=== PATIENT | female | born 1955 | race Hispanic/Latino ===

== ENCOUNTER 2017-08-19 14:59 | Inpatient (IN) | payer BC ==
[~2017-08-19 14:59] MED LIST: Dexamethasone 20 MG/5 ML VIAL ONE; Glycopyrrolate 0.2 MG/ML 5 ML SYRINGE ONE; Ketorolac Tromethamine 30 MG/ML VIAL ONE; Lidocaine 1% PF 5 ML VIAL ONE; Ondansetron HCl/PF 4 MG/2 ML Vial ONE; Propofol 200 MG/20 ML VIAL ONE
[2017-08-19] MEDS ORDERED: CEFAZOLIN/Water 2 GM/20 ML SYRINGE ONE (15:23)
[2017-08-19] MEDS ORDERED: Adacel (T-DAP) 0.5 ML VIAL ONE (15:24)
--- NOTE | 2017-08-19 15:48 | RAD ---
THREE VIEWS OF THE RIGHT HAND: INDICATION: Right hand injury. FINDINGS: There is a displaced transverse oriented thumb distal phalangeal fracture. There is advanced 1st CMC osteoarthrosis. There is associated soft tissue laceration. IMPRESSION: 1. Suggested open thumb distal phalangeal fracture. 2. 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 POS: [facility]
[2017-08-19] MEDS ORDERED: Gentamicin 80 MG/2 ML VIAL ONE (16:01)
[2017-08-19] MEDS ORDERED: Fentanyl 100 MCG/2 ML VIAL ONE ×2 (18:52→19:34)
[2017-08-19] MEDS ORDERED: Heparin 10,000 UNITS/1 ML VIAL ONE (19:20)
[2017-08-19] MEDS ORDERED: Bupivacaine 0.5% 10 ML VIAL ONE (19:20)
[2017-08-19] MEDS ORDERED: Betamet Acet/Betamet Na Ph 30 MG/5 ML VIAL ONE (19:20)
[2017-08-19] MEDS ORDERED: Hetastarch 6% 500 ML 0 ML ONE (19:20)
[2017-08-19] MEDS ORDERED: Bacitracin Zinc Ointment 30 gm TUBE ONE (19:20)
[2017-08-19] MEDS ORDERED: Lidocaine 2% w/Epinephrine 1:200K 20 ML VIAL ONE (19:20)
[2017-08-19] MEDS ORDERED: HYDROmorphone 0.5 MG/0.5 ML SYRINGE ONE (19:34)
[2017-08-19] MEDS ORDERED: HYDROmorphone 2 MG/ML VIAL SLOW IVP PRN (21:28)
[2017-08-19] MEDS ORDERED: Promethazine HCl 25 MG/ML VIAL IM PRN ×2 (21:28→21:44)
[2017-08-19] MEDS ORDERED: Promethazine HCl 25 MG/ML VIAL SLOW IVP PRN (21:28)
[2017-08-19] MEDS ORDERED: Ondansetron HCl/PF 4 MG/2 ML Vial IVP PRN (21:28)
[2017-08-19] MEDS ORDERED: HYDROcodone/Acetaminophen 10/325 mg Tablet PO PRN (21:44)
[2017-08-19] MEDS ORDERED: Milk Of Magnesia 30 ML UDCUP PO PRN (21:44)
[2017-08-19] MEDS ORDERED: Bisacodyl 10 MG SUPP PR PRN (21:44)
[2017-08-19] MEDS ORDERED: Ondansetron HCl/PF 4 MG/2 ML Vial IV PRN (21:44)
[2017-08-19] MEDS ORDERED: traMADol HCl 50 MG TAB PO PRN (21:44)
[2017-08-19] MEDS ORDERED: TETANUS AND DIPHTHERIA TOX/PF 0.5 ML DISP.SYRIN IM SCH (21:45)
[2017-08-19] MEDS ORDERED: Communication Order-Pharmacy FS SCH (21:45)
[2017-08-19] MEDS: Ketorolac Tromethamine 30 MG/ML VIAL IVP SCH (23:14)
[2017-08-19 23:20] VITALS: BMI 30.2
[2017-08-20] MEDS ORDERED: Gentamicin 80 MG/2 ML VIAL IM SCH (06:00)
[2017-08-20] MEDS: Ketorolac Tromethamine 30 MG/ML VIAL IVP SCH ×4 (06:06→23:14)
[2017-08-20 06:17] LABS: #Lymphocytes 0.8 thou/uL (1.20-3.40); #Monocytes 0.2 thou/uL (0.11-0.59); %Basophils 0.7 % (0.0-1.0); %Eosinophils 0.3 % (0.0-10.0); %Lymphocytes 12.7 % (21.0-51.0); %Monocytes 2.9 % (0.0-10.0); %Neutrophils 83.4 % (42.0-75.0); Hemoglobin 13.3 g/dL (12.0-16.0); Mean Corpuscular HGB CONC 33.2 g/dL (32.0-36.0); Mean Corpuscular Hemoglobin 33.5 pg (27.0-31.0); Mean Platelet Volume 7.3 fL (7.4-10.4); Platelet Count 264 thou/uL (130-400); RBC Distribution Width 11.3 % (11.5-14.5); Red Blood Cell (RBC) Count 3.96 mill/uL (4.20-5.40); White Blood Cell (WBC) Count 5.9 thou/uL (4.8-10.8)
[2017-08-20 06:37] LABS: Anion Gap 8 mmol/L (10-20); BUN (Urea Nitrogen) 13 mg/dL (9.8-20.1); Calc. Creatinine Clearance 87 mL/min (70-130); Calcium 10.7 mg/dL (7.8-10.44); Carbon Dioxide 26 mmol/L (22-29); Chloride 104 mmol/L (98-107); Estimated GFR-MDRD 77; Glucose 148 mg/dL (70-105); Potassium 4.4 mmol/L (3.5-5.1); Sodium 134 mmol/L (136-145)
--- NOTE | 2017-08-20 07:41 | RAD ---
RIGHT HAND INTRAOPERATIVE FLUOROSCOPY: Date: 08/19/17 HISTORY: Thumb fracture. FINDINGS/IMPRESSION: Intraoperative fluoroscopy was provided for internal fixation as performed by Dr. Head. Two spot fluoroscopic images show two wires to transfix the comminuted distal phalangeal fracture. Alignment i s anatomic. Fluoro Time: 31 seconds. POS: [facility]
[2017-08-20] MEDS: Ampicillin/Sulbactam 1.5 GM in Sodium Chloride 0.9% 100 ML IVPB SCH ×2 (08:22→21:35)
[2017-08-20] MEDS: Gentamicin Sulfate 80 MG in Premix Bag 1 BAG IVPB SCH ×3 (09:41→23:16)
--- NOTE | 2017-08-20 10:40 | OP ---
DATE OF SURGERY: 08/19/2017 PREOPERATIVE DIAGNOSES: 1. Dog bite wound with open fracture, neurovascular injury, right thumb. 2. Index finger dog bite wound without evidence of bony involvement, right index finger. POSTOPERATIVE DIAGNOSES: Radial digital artery and nerve laceration, right thumb, FPL 25% laceration , right thumb radial aspect. Grade II open fracture distal phalanx with 3 cm wound and apparently by examination today, the ulna, neurovascular bundle was intact. Also, partial extensor tendon lacerat ion, thumb. PROCEDURES PERFORMED: 1. Index finger. A. Debridement of wound. B. Removal of nail bed. C. C-arm examination. 2. Right thumb. A. Debridement of material associated open fracture including multiple particles and hair of the dog . B. Wound debridement 3 cm. C. Open reduction distal phalanx fracture. D. C-arm supervision. E. Radial digital nerve neuroplasty with tag identification using 9-0 Nurolon suture. F. Debridement of nail bed laceration. G. Repair flex pollicis longus tendon. H. Removal of the nail, thumb. TOURNIQUET TIME: 28 minutes. ESTIMATED BLOOD LOSS: 20 mL. FINDINGS: Very contaminated wound to include bone, subcutaneous tissue at the thumb open fracture. DESCRIPTION OF PROCEDURE: After successful general anesthesia by Italian anesthesia, the limb was p repped and draped. The patient had appropriate timeout, and the procedure listed scheduled pro cedure and we began. We exsanguinated the limb, inflated tourniquet to 250 mmHg pressure and immedia tely made an incision along the radial aspect of the thumb where he had the laceration, we the ulnar aspect, carried through the skin and subcutaneous tissue where we then identified neurovascula r bundle on both sides at the radial side laceration and then we tagged this with a 9-0 Nurolon for l ater identification. There were already multiple hairs of the dog and little small hematoma black pa rticles, these debrided individually until we got all the way to the ulnar side of the fracture. The fracture was debrided with a curette, Bond blade, and the same pickups/crile used in the first krista cription. Once this was done, then we used a curette in addition to other instruments to debride the bone and of all material associated with open fracture, right thumb distal phalanx. At this point, we then were prepared to use Pulsavac. We used 2 liters normal saline and Pulsavac pressure with ant ibiotics inside. We then brought the edges of the laceration together left to realign, held the bone in place, then passed the retrograde K-wire across the fracture x2 using 3.5 wires burying them in t he subchondral bone and we had excellent stability. There was no instability seen. We then finished irrigation of the index. Then, we had 3 cm ulnar midlateral laceration with no repa ir connects to the joint, even despite the radiographs described above. Once we finished this irriga tion and debridement, we then took an additional 1 liter to each of the wounds, drained them and then prepared with a dressing appropriately. Patient then left the operating room without evidence of an esthetic or operative complication.
[2017-08-20] MEDS ORDERED: Labetalol 100 MG/20 ML MDV ONE (16:19)
[2017-08-20] MEDS ORDERED: Ketorolac Tromethamine 30 MG/ML VIAL ONE (16:19)
[2017-08-20] MEDS ORDERED: Ondansetron HCl/PF 4 MG/2 ML Vial ONE (16:19)
[2017-08-20] MEDS ORDERED: Dexamethasone 20 MG/5 ML VIAL ONE (16:19)
[2017-08-20] MEDS ORDERED: Lidocaine 1% PF 5 ML VIAL ONE (16:19)
[2017-08-20] MEDS ORDERED: Propofol 200 MG/20 ML VIAL ONE (16:19)
[2017-08-20] MEDS ORDERED: Heparin 10,000 UNITS/1 ML VIAL ONE (17:18)
[2017-08-20] MEDS ORDERED: Bupivacaine 0.5% 10 ML VIAL ONE (17:18)
[2017-08-20] MEDS ORDERED: Hetastarch 6% 500 ML 500 ML ONE (17:18)
[2017-08-20] MEDS ORDERED: Betamet Acet/Betamet Na Ph 30 MG/5 ML VIAL ONE (17:18)
[2017-08-20] MEDS ORDERED: Bacitracin Zinc Ointment 30 gm TUBE ONE (17:18)
[2017-08-20] MEDS ORDERED: Sodium Chloride 0.9% 30 ML ONE (17:39)
[2017-08-20] MEDS ORDERED: Midazolam HCl 2 mg/2 ml Vial ONE (18:27)
[2017-08-20] MEDS ORDERED: Fentanyl 100 MCG/2 ML VIAL ONE (18:28)
[2017-08-20] MEDS ORDERED: HYDROmorphone 0.5 MG/0.5 ML SYRINGE ONE ×2 (19:21→19:32)
[2017-08-20] MEDS ORDERED: Ampicillin/Sulbactam 1.5 GM VIAL ONE (20:32)
[2017-08-20] MEDS ORDERED: Morphine Sulfate 2 MG/ML SYRINGE SLOW IVP PRN (21:14)
[2017-08-20] MEDS ORDERED: Promethazine HCl 25 MG/ML VIAL SLOW IVP PRN (21:14)
[2017-08-20] MEDS ORDERED: Ondansetron HCl/PF 4 MG/2 ML Vial IVP PRN (21:14)
[2017-08-20] MEDS ORDERED: Hetastarch 6% 500 ML 500 ML IVPB SCH (22:00)
--- NOTE | 2017-08-21 07:01 | OP ---
DATE OF SERVICE: 08/20/2017 PREOPERATIVE DIAGNOSES: 1. Dog bite with open wound, open fracture, digital artery and nerve laceration, right thumb. 2. Index finger open wound, 5 centimeters in right thumb with no fracture with no visible nail bed l aceration. FINDINGS: No gross infection, minimal 1-2 fragment contamination making the wound clean enough espec ially after debridement for loose approximation and definitive procedure accomplishment. PROCEDURES PERFORMED: 1. At the right long finger: 1. 5 cm wound debridement; 2. 5 cm wound closure debridement of this wound at the right index finger as follows: A. Use of tenotomy scissors, Beaufort blade, and pickup. B. Excisional technique. C. Depth to include approximately 3-4 mm, not involving fascia, not involving bone or joint and see there was no gross necrosis or contamination. 2. At the right thumb: 1. Wound debridement, right thumb, depth was down to and including the bone edges where there was a bony defect. TECHNIQUE: A Excisional. B. Instruments used; small curet, tenotomy scissor, pickup, Beaufort blade, #15 blade and rongeur. FINDINGS; No gross infection, only one to two partial contamination seen in the entire high power field, this w as easily removed. Technique was excisional. 3. On the right thumb: 1. Bone debridement. A. material associated open fracture. B. The same technique as listed above for the instruments. C. Nailbed repair. D. Microscopic digital nerve repair 2 or 3 rami. 4. A closure of wound, 6 cm complex. 5. Repair of collateral ligament at the right thumb, mid aspect. 6. Application of splint, short arm postop. INDICATIONS: The patient returns for staged wound management, where she clearly has right thumb and index finger wound. The wound was contaminated so much last night that we could not close it and did not definitively do neurovascular repair. Returned today for staple management of clean and not def initive final treatment plan. SURGEON: Valdemar Head MD MATERIAL LIAISON: Ascencion Tineo, certified wellness program coordinator. All procedures were done under magnification. DESCRIPTION OF PROCEDURE: After successful general LMA technique, limb prepped and draped. The limb was exsanguinated, confirmed to have good circulation before and a tourniquet inflated to 250 mmHg p ressure. We used the previous incision and identified very quickly the rami of the nerve distal to t he laceration, found 3 rami including one is very short and one is very long. We could not match the very long with an identifiable proximal rami, so we used technique to approximate the two. Before we approximated them, they had been tagged, and then we finished the debridement as described above of the bone of the wound of the index bone and wound of the index finger. Then, we finished th e debridement and irrigated the joint with 1500 mL of normal saline with antibiotics inside. We used 1000 of this on the index finger. We then prepared for final closure. We repaired the collateral l igament with a heavy 5-0 suture, [id number] tear, we then performed the nail bed repair us ing the running 5-0 chromic, and then we began the inspection of the neurovascular bundle. Microscop e was brought into the field. We again did debridement microscopically down to including the bone, s aw the hole in the fracture, but the fracture made up alignment nearly anatomically, so we felt this would heal in this young person. We followed this debridement with another closure where the nail bed began; it was closed with 5-0 chromic gut. Despite being interrupted, it was excellent for this, and the repair was cleopatra omic. We now turned attention to the microscope where we did a neuroplasty of digital nerves on both sides, could not find a truck on one side, so we made the best fit. The patient had no further complicatio ns. Tourniquet was deflated. We then finished the closure because we had a pink digit with one seco nd refill at the thumb with 5-0 nylon was used and extend the incision and debrided subcutaneous inci khushbu that was transverse. When this was completed, the thumb had excellent pink digit with one secon d refill. We cut the wires down to a point where they were flush or slightly subterranean with the s kin and then placed a thumb spica splint. The patient then left the operating room without evidence of anesthetic or operative complication.
[2017-08-21] MEDS: Gentamicin Sulfate 80 MG in Premix Bag 1 BAG IVPB SCH (07:56)
[2017-08-21] MEDS ORDERED: Hetastarch 6% 500 ML 500 ML IVPB SCH (08:01)
[2017-08-21] MEDS: Ampicillin/Sulbactam 1.5 GM in Sodium Chloride 0.9% 100 ML IVPB SCH (08:02)
[2017-08-21] MEDS ORDERED: Aspirin 325 mg Enteric Coated Tablet PO SCH (09:00)
[2017-08-21] MEDS ORDERED: NIFEdipine XL 30 MG TAB PO SCH (09:00)
[2017-08-21] MEDS ORDERED: Fluticasone Propionate Nasal Spray 16 gm Bottle NASAL SCH (09:00)
[2017-08-21 11:44] VITALS: BP 149/76; TEMP 98.3
== END 2017-08-21 15:44 | disposition home or self-care (01) | DRG 906 ==
LOC: ERS 14:59 → SDC 17:10 → SURG A 21:44
PROVIDERS: ADMIT Orthopaedic Surgery Hand Surgery; ATTEND Orthopaedic Surgery Hand Surgery
PROC: 0PBR0ZZ Excision of Right Thumb Phalanx, Open Approach (ICD-10-PCS; 2017-08-19)
PROC: 0PSR04Z Reposition Right Thumb Phalanx with Internal Fixation Device, Open Approach (ICD-10-PCS; 2017-08-19)
PROC: 0HBQXZZ Excision of Finger Nail, External Approach (ICD-10-PCS; 2017-08-19)
PROC: 0HBQXZZ Excision of Finger Nail, External Approach (ICD-10-PCS; 2017-08-19)
PROC: 0HBFXZZ Excision of Right Hand Skin, External Approach (ICD-10-PCS; principal; 2017-08-20)
PROC: 03QD0ZZ Repair Right Hand Artery, Open Approach (ICD-10-PCS; 2017-08-20)
PROC: 0HQFXZZ Repair Right Hand Skin, External Approach (ICD-10-PCS; 2017-08-20)
PROC: 0MQ70ZZ Repair Right Hand Bursa and Ligament, Open Approach (ICD-10-PCS; 2017-08-20)
PROC: 01Q60ZZ Repair Radial Nerve, Open Approach (ICD-10-PCS; 2017-08-20)
PROC: 0PBR0ZZ Excision of Right Thumb Phalanx, Open Approach (ICD-10-PCS; 2017-08-20)
DX: S65.4 Injury of blood vessel of thumb (principal); I10 Essential (primary) hypertension; S62.501B Fracture of unspecified phalanx of right thumb, initial encounter for open fracture; S66.221A Laceration of extensor muscle, fascia and tendon of right thumb at wrist and hand level, initial encounter; S61.151A Open bite of right thumb with damage to nail, initial encounter; W54.0XXA Bitten by dog, initial encounter; S64.8X1A Injury of other nerves at wrist and hand level of right arm, initial encounter; S61.451A Open bite of right hand, initial encounter; S61.210A Laceration without foreign body of right index finger without damage to nail, initial encounter; Z23 Encounter for immunization
CPT/HCPCS: 36415; 76000; 80048; 85025; 90471; 90715; 96374; 96375; A4216; J0295; J0702; J1100; J1170; J1580; J1644; J1885; J2001; J2250; J2270; J2405; J2704; J3010; J3490; J7050